=== PATIENT | female | born 1955 | race Hispanic/Latino ===

== ENCOUNTER → 2019-12-08 | Outpatient (CLI) | payer OTHER | END | disposition home or self-care (01) | LOC: RAH 13:41 | PROVIDERS: ATTEND Physician Assistant | DX: Z12.31 Encounter for screening mammogram for malignant neoplasm of breast (principal) | CPT/HCPCS: 77067 ==

== ENCOUNTER → 2023-12-19 | Outpatient (CLI) | payer OTHER | END | disposition home or self-care (01) | LOC: RAH 08:37 | PROVIDERS: ATTEND Physician Assistant | DX: Z12.31 Encounter for screening mammogram for malignant neoplasm of breast (principal) | CPT/HCPCS: 77067 ==

== ENCOUNTER → 2024-01-01 | Outpatient (CLI) | payer OTHER | END | disposition home or self-care (01) | LOC: RAH 13:53 | PROVIDERS: ATTEND Physician Assistant | DX: M85.88 Other specified disorders of bone density and structure, other site (principal); E55.9 Vitamin D deficiency, unspecified | CPT/HCPCS: 77080 ==

== ENCOUNTER 2024-01-30 08:02 | Observation (INO) | payer OTHER ==
[2024-01-28 13:18] LABS: BASOPHILS # (AUTO) 0.03 K/uL (0.00-0.20); BASOPHILS % (AUTO) 0.4 % (0.0-5.0); EOSINOPHILS # (AUTO) 0.12 K/uL (0.00-0.70); EOSINOPHILS % (AUTO) 1.5 % (0.0-8.0); HEMATOCRIT 41.9 % (36-48); IMMATURE GRANULOCYTE ABSOLUTE 0.02 K/uL (0-1); LYMPHOCYTES # (AUTO) 2.3 K/uL (1.0-4.8); LYMPHOCYTES % (AUTO) 29.1 % (21.0-51.0); MEAN CORPUSCULAR HEMOGLOBIN 30.9 pg (27.0-33.0); MEAN CORPUSCULAR HGB CONC 32.7 g/dL (32.0-36.0); MEAN CORPUSCULAR VOLUME 94.6 fL (79-99); MONOCYTES # (AUTO) 0.8 K/uL (0.1-1.0); MONOCYTES % (AUTO) 9.9 % (3.0-13.0); NEUTROPHILS # (AUTO) 4.7 K/uL (1.8-7.7); NEUTROPHILS % (AUTO) 58.8 % (40.0-77.0); PLATELET COUNT (AUTO) 230 K/uL (130-400); RED BLOOD CELL COUNT(AUTO) 4.43 MIL/uL (4.00-5.50); RED CELL DISTRIBUTION WIDTH 14.6 % (11.0-15.5)
[2024-01-28 13:19] LABS: APPEARANCE,URINE CLEAR (CLEAR); BILIRUBIN,URINE NEGATIVE (NEGATIVE); COLOR,URINE LIGHT-YELLOW (YELLOW); GLUCOSE, URINE (UA) NEGATIVE (NEGATIVE); KETONES,URINE NEGATIVE (NEGATIVE); LEUKOCYTE ESTERASE ,URINE 250 Leu/uL (NEGATIVE); NITRATE,URINE 2+ (NEGATIVE); OCCULT BLOOD,URINE SMALL (NEGATIVE); PH,URINE 5.5 (5.0-8.0); PROTEIN,URINE NEGATIVE (NEGATIVE); UROBILINOGEN,URINE 0.2 mg/dL (0.2-1.0)
[2024-01-28 13:26] VITALS: BP 137/67; PULSE 65; RESP 15
[2024-01-28 13:28] LABS: ALBUMIN 3.6 g/dL (3.5-5.0); CREATININE 0.9 mg/dL (0.5-1.0); INR <= 0.93 (0.85-1.15); POTASSIUM 4.3 mmol/L (3.5-5.1); PROTHROMBIN TIME 10.8 SEC (9.6-11.6)
[2024-01-28 13:30] LABS: PARTIAL THROMBOPLASTIN TIME 28.8 SEC (26.3-35.5)
[2024-01-28 13:34] LABS: ADD UA MICROSCOPIC YES
[2024-01-28 13:39] LABS: BACTERIA,URINE RARE /HPF (None Seen); MUCUS,URINE RARE LPF (None Seen); SQUAMOUS EPITHELIAL CELL,UR MOD /HPF (0-2)
[2024-01-30] VITALS (28 sets, daily range): BP systolic 106–149; BP diastolic 46–85; PULSE 51–94; RESP 15–18; O2SAT 99
[~2024-01-30] VITALS: Ht 154.9 cm; Wt 68.7 kg
[~2024-01-30 08:02] MED LIST: ERGO500093 PO; NAPR-1023 PO; SIMV-43 PO
[2024-01-30] MEDS: LACTATED RINGERS 1000ML 1,000 ML IV ONE (08:39)
[2024-01-30] MEDS: CEFAZOLIN SODIUM 2 GM VIAL ONE (08:39)
[2024-01-30] MEDS ORDERED: TRANEXAMIC ACID 1000MG/10ML ONE (10:10)
[2024-01-30] MEDS: MIDAZOLAM HCL 1 MG/ML 2ML VIAL ONE (11:05)
[2024-01-30] MEDS: MIDAZOLAM HCL 1 MG/ML 2ML VIAL IVPB ONE (11:07)
[2024-01-30] MEDS ORDERED: LIDOCAINE PF 100MG/5ML (2%) SYRINGE 5ML ONE (11:13)
[2024-01-30] MEDS ORDERED: ONDANSETRON 4MG INJ ONE (11:13)
[2024-01-30] MEDS ORDERED: PROPOFOL 10 MG/ML 20ML VIAL IV ONE ×2 (11:13→13:01)
[2024-01-30] MEDS ORDERED: GLYCOPYRROLATE 0.2 MG/ML 5 ML VIAL ONE (11:13)
[2024-01-30] MEDS ORDERED: SUCCINYLCHOLINE CHLORIDE 20 MG/ML 10 ML VIAL ONE (11:13)
[2024-01-30] MEDS ORDERED: NEOSTIGMINE METHYLSULFATE 1MG/ML IV ONE (11:14)
[2024-01-30] MEDS ORDERED: ROCURONIUM BROMIDE 10MG/1ML 5ML VL ONE (11:14)
[2024-01-30] MEDS ORDERED: FENTANYL CITRATE PF 50 MCG/1 ML 2ML VIAL ONE ×2 (11:15→12:26)
[2024-01-30] MEDS: CEFAZOLIN SODIUM 2 GM VIAL IVPB ONE (11:20)
[2024-01-30] MEDS ORDERED: ROPIVACAINE 0.5% 5MG/ML 30ML ONE (11:21)
[2024-01-30] MEDS ORDERED: DEXAMETHASONE SOD PHOSPHATE 10MG/ML 1ML VIAL ONE (11:49)
[2024-01-30] MEDS: TRANEXAMIC ACID 1000MG/10ML IV ONE ×3 (12:03→13:34)
[2024-01-30] MEDS ORDERED: PHENYLEPHRINE HCL 10 MG/ML 1ML VIAL IV ONE (12:39)
[2024-01-30] MEDS ORDERED: MORPHINE PF 100MG/10ML AMP IV ONE (13:53)
[2024-01-30] MEDS: 0.9%NACL 1000ML 1,000 ML IV SCH (14:00)
[2024-01-30] MEDS ORDERED: KCL 20 MEQ ERTAB PO PRN (14:00)
[2024-01-30] MEDS: GABAPENTIN 100 MG CAPSULE PO SCH (14:00)
[2024-01-30] MEDS ORDERED: FERROUS FUMARATE 324 MG TABLET PO PRN (14:00)
[2024-01-30] MEDS ORDERED: POTASSIUM CHLORIDE 10% ELIXIR 20 MEQ/15 ML UDCUP PO PRN (14:00)
[2024-01-30] MEDS: KETOROLAC 15MG/ML VIAL (15MG/ML) IV SCH (14:00)
[2024-01-30] MEDS ORDERED: CYCLOBENZAPRINE HCL 10 MG TABLET PO PRN (14:00)
[2024-01-30] MEDS ORDERED: ONDANSETRON 4MG INJ IVP PRN (14:00)
[2024-01-30] MEDS ORDERED: POTASSIUM CHLORIDE 20MEQ/100ML 100 ML IV PRN (14:00)
[2024-01-30] MEDS ORDERED: CALCIUM CARB 500MG PO PRN (14:00)
[2024-01-30] MEDS: MORPHINE 2 MG SYG ONE (15:00)
[2024-01-30] MEDS: CEFAZOLIN SODIUM 2 GM VIAL IVPB SCH (19:56)
[2024-01-30] MEDS: DOCUSATE SODIUM 100 MG CAP PO SCH (19:56)
[2024-01-30] MEDS: SIMVASTATIN 20 MG TABLET PO SCH (19:57)
[2024-01-31 04:00] VITALS: BP 117/50; PULSE 83; RESP 18
[2024-01-31 04:37] LABS: HEMATOCRIT 34.8 % (36-48); MEAN CORPUSCULAR HEMOGLOBIN 31.5 pg (27.0-33.0); MEAN CORPUSCULAR HGB CONC 32.5 g/dL (32.0-36.0); MEAN CORPUSCULAR VOLUME 96.9 fL (79-99); RED BLOOD CELL COUNT(AUTO) 3.59 MIL/uL (4.00-5.50); RED CELL DISTRIBUTION WIDTH 14.1 % (11.0-15.5); WHITE BLOOD COUNT (AUTO) 15.8 K/uL (4.8-10.8)
[2024-01-31 05:13] LABS: CREATININE 1.2 mg/dL (0.5-1.0); POTASSIUM 4.1 mmol/L (3.5-5.1)
[2024-01-31] MEDS: HYDROCODONE/ACETAMINOPHEN 5/325 MG TAB PO PRN (06:51)
[2024-01-31 07:44] VITALS: O2SAT 99
[2024-01-31 08:00] VITALS: BP 115/56; PULSE 56; RESP 16
[2024-01-31] MEDS: POLYETHYLENE GLYCOL 3350 17 GM POWD.PACK PO SCH (08:43)
[2024-01-31] MEDS: ASPIRIN 325MG EC TAB PO SCH (08:43)
[2024-01-31] MEDS: TRAMADOL HCL 50 MG TABLET PO PRN (08:53)
[2024-01-31 12:00] VITALS: BP 110/58; PULSE 56; RESP 16
[2024-01-31] MEDS: KETOROLAC 15MG/ML VIAL (15MG/ML) IV PRN (14:42)
[2024-01-31 16:00] VITALS: BP 94/53; PULSE 64; RESP 16
[2024-01-31 20:00] VITALS: BP 107/58; PULSE 75; RESP 18; O2SAT 97
[2024-01-31] MEDS: LEVOFLOXACIN 500 MG TABLET PO SCH (20:10)
[2024-02-01] VITALS: BP 119/64; PULSE 87; RESP 18
[2024-02-01 04:00] VITALS: BP 93/55; PULSE 80; RESP 17
[2024-02-01 08:00] VITALS: BP 107/46; PULSE 78; RESP 18; O2SAT 97
[2024-02-01 12:00] VITALS: BP 110/50; PULSE 78; RESP 18
[2024-02-01] MEDS ORDERED: DOCU-116 PO (13:21)
[2024-02-01] MEDS ORDERED: ASPI-891 PO (13:21)
[2024-02-01] MEDS ORDERED: LEVO-70 PO (13:21)
[2024-02-01] MEDS ORDERED: HYDR-4060 PO (13:21)
[2024-02-01] MEDS ORDERED: CYCL-309 PO (13:21)
[2024-02-01] MEDS ORDERED: GABA100C PO (13:21)
[2024-02-01 14:26] LABS: BASOPHILS # (AUTO) 0.03 K/uL (0.00-0.20); BASOPHILS % (AUTO) 0.2 % (0.0-5.0); EOSINOPHILS # (AUTO) 0.12 K/uL (0.00-0.70); EOSINOPHILS % (AUTO) 0.9 % (0.0-8.0); HEMATOCRIT 30.5 % (36-48); IMMATURE GRANULOCYTE ABSOLUTE 0.04 K/uL (0-1); LYMPHOCYTES # (AUTO) 1.4 K/uL (1.0-4.8); LYMPHOCYTES % (AUTO) 10.9 % (21.0-51.0); MEAN CORPUSCULAR HEMOGLOBIN 31.6 pg (27.0-33.0); MEAN CORPUSCULAR HGB CONC 33.1 g/dL (32.0-36.0); MEAN CORPUSCULAR VOLUME 95.3 fL (79-99); MONOCYTES % (AUTO) 15.7 % (3.0-13.0); NEUTROPHILS # (AUTO) 9.3 K/uL (1.8-7.7); PLATELET COUNT (AUTO) 166 K/uL (130-400); RED CELL DISTRIBUTION WIDTH 14.9 % (11.0-15.5); WHITE BLOOD COUNT (AUTO) 12.9 K/uL (4.8-10.8)
[2024-02-01 14:38] LABS: CREATININE 1.1 mg/dL (0.5-1.0); POTASSIUM 4.1 mmol/L (3.5-5.1)
[2024-02-01 15:06] LABS: WBC MORPHOLOGY CONSISTENT W/DIFF
[2024-02-02] MEDS ORDERED: BISACODYL 10 MG SUPP.RECT RC PRN (14:00)
[2024-02-06] MEDS ORDERED: ERGOCALCIFEROL (VITAMIN D2) 50,000 UNIT CAPSULE PO SCH (09:00)
== END 2024-02-01 17:10 ==
LOC: DAH 08:02 → DAHIP 08:03 → DAH 08:03 → 4DH 17:04
PROVIDERS: ADMIT Student in an Organized Health Care Education/Training Program; ATTEND Student in an Organized Health Care Education/Training Program
DX: M16.11 Unilateral primary osteoarthritis, right hip (principal); G89.18 Other acute postprocedural pain; R60.0 Localized edema; D62 Acute posthemorrhagic anemia; M21.70 Unequal limb length (acquired), unspecified site; R26.89 Other abnormalities of gait and mobility; E78.00 Pure hypercholesterolemia, unspecified
CPT/HCPCS: 82040; 80048 ×3; 85025 ×2; 85610; 85730; 87088; 84134; 86140; 81001; 36415 ×3; 93005; 87641; 27130; 96365; 96375; 64447; 73503; 87077; 87186; 73521; 96376; 85027; 97161; 97116 ×4; 97530 ×8; G0378 ×47; A4600; A4663; J7120 ×2; C1776; J3010 ×2; J3490 ×5; J1100; J0330; J2270; J2001; J2250 ×2; J2704 ×2; J2274; J2405; J2710; J2795; J1885 ×3; J2371; J0690 ×4; A4649 ×3; G0168; A6255; A5120; A4215; A4223; A4222; A4221